=== PATIENT | female | born 1945 | race Caucasian/White ===

== ENCOUNTER 2017-04-22 12:30 | Inpatient (IN) ==
[2017-04-22] MEDS ORDERED: Famotidine 20 MG/2 ML VIAL IVP ONE (12:48)
[2017-04-22] MEDS ORDERED: Gabapentin 300 MG CAPSULE PO ONE (12:48)
[2017-04-22] MEDS ORDERED: CeFAZolin Syr 2,000MG/20 ML 2,000 MG/20 ML SYRINGE IVPB ONE (12:58)
[2017-04-22] MEDS ORDERED: Lidocaine -MPF 1% 2 ML VIAL ID ONE (12:58)
[2017-04-22] MEDS ORDERED: Ringers Solution, Lactated 1,000 ML IVC SCH ×2 (13:00→14:30)
--- NOTE | 2017-04-22 13:02 | Anesthesia Evaluation PreOp ---
Date of Encounter: 04/22/17 Time of Encounter: 13:00 - Past History Planned Operation: Left Total Shoulder Replacement Cardiac History: HTN, Hyperlipidemia Pulmonary History: Denies Any Significant HX ELECTRONIC EQUIPMENT SET UP OPERATOR History: Denies Any Significant HX Other Medical History: Renal (CKD), Diabetes Type II (DM), Thyroid Anesthesia History: No Prior Anesthetic Complications : No Alcohol Use: none Drug use: none Medications and Allergies Allopurinol [Zyloprim 300 MG] 300 mg PO DAILY 04/22/17 [History] Amlodipine Besylate/Benazepril [Lotrel 5-40 mg Capsule] 1 cap PO DAILY 04/22/17 [History] Citalopram Hydrobromide [Citalopram HBr] 20 mg PO DAILY 04/22/17 [History] Fenofibrate Nanocrystallized [Triglide] 160 mg PO DAILY 04/22/17 [History] Fish Oil/Dha/Epa [Fish Oil 1,200 mg Fish Oil] 1 cap PO DAILY 04/22/17 [History] Furosemide [Lasix] 40 mg PO DAILY 04/22/17 [History] Glimepiride [Amaryl] 2 mg PO DAILY 04/22/17 [History] Levothyroxine Sodium 112 mcg PO DAILY 04/22/17 [History] Simvastatin [Zocor] 20 mg PO HS 04/22/17 [History] 3 Allergy/AdvReac Type Severity Reaction Status Date / Time No Known Allergies Allergy Verified 04/22/17 12:53 - Meds/Allergy Pre-op Review Medications Reviewed: Yes Allergies Reviewed: Yes Beta Blockers on Current Med List: No Anesthesia Results - Labs Laboratory Tests 04/20/17 04/20/17 10:50 10:50 Hgb 12.4 Hct 38.6 Plt Count 272 Sodium 142 Potassium 4.4 BUN 34 H Creatinine 1.44 H - Imaging EKG: report reviewed (Supraventricular Bradycardia) Anesthesia Exam O2 Sat Height 1.63 m Weight 87.09 kg Height: 5'4 Weight: 192 lbs NPO (# of Hours): MN Pain Scale: 0 - HEENT Pupil (Motor): Pupils equal, EOMI Mallampati: III Teeth: Normal Oral Opening: Less than or equal to 3 - ELECTRONIC EQUIPMENT SET UP OPERATOR LOC: Oriented ELECTRONIC EQUIPMENT SET UP OPERATOR Motor: Normal RUE, Normal LUE, Normal RLE, Normal LLE, Normal Face ELECTRONIC EQUIPMENT SET UP OPERATOR Sensory: Normal: RUE, LUE, RLE, LLE, Face - Cardiac Rhythm: Regular Murmur: None JVD: No Carotid Bruit: No - Pulmonary Breath Sounds: bilateral Clear Respiratory Effort: Symmetrical Anesthesia Assess/Plan ASA Score: 3 (HTN DM) Modified Mer Scale for Level of Consciousness: Cooperative, oriented, and tranquil Anesthetic Plan: General, Regional Monitoring Plan: Standard Monitors Recovery Plan: PACU (Discussed GA and RA, agrees to proceed)
[2017-04-22] MEDS ORDERED: *HR* Propofol 200 MG/20 ML VIAL IVP ONE (13:16)
[2017-04-22] MEDS ORDERED: *HR* FentaNYL (PF) 100 MCG/2 ML VIAL ONE (13:16)
[2017-04-22] MEDS ORDERED: *HR* Midazolam HCl 2 MG/2 ML VIAL ONE (13:16)
[2017-04-22] MEDS ORDERED: Dexamethasone 4 MG/ML VIAL ONE (13:17)
[2017-04-22] MEDS ORDERED: Lidocaine -MPF 2% 2 ML VIAL ONE (13:17)
[2017-04-22] MEDS ORDERED: Ondansetron 4 MG/2 ML VIAL ONE (13:17)
--- NOTE | 2017-04-22 13:31 | History & Physical Report ---
Date of Encounter: 04/22/17 Time of Encounter: 13:30 24 Hour HP Update - Instructions Instructions: If the History and Physical is less than 30 days old and was completed prior to A.M. admission and or procedure and has NOT been updated on calendar day of procedure please complete this update prior to performing procedure. - Update Patient reports changes in Medical Condition: No Changes in examination, assessment, or condition: No Changes in Medication: No Preop tests/diagnostics Reviewed: Yes Surgery Remains Indicated: Yes Consent for Planned Operative Procedure(s) Verified: Yes - Pre-Operative Checklist Preoperative Checklist Indicated: No Prophylactic Antibiotic Ordered: Yes Is VTE Prophylaxis Indicated?: Yes
--- NOTE | 2017-04-22 13:33 | Discharge Summary ---
Date of Encounter: 04/22/17 - Discharge Diagnosis (1) Chronic kidney disease (CKD) stage G1/A2, glomerular filtration rate (GFR) equal to or greater than 90 mL/min/1.73 square meter and albuminuria creatinine ratio between 30-299 mg/g Priority: Secondary Status: Chronic (2) Hypertension Priority: Secondary Status: Chronic Qualifiers: Hypertension type: unspecified secondary hypertension Qualified Code(s): I15.9 - Secondary hypertension, unspecified; I15 - Secondary hypertension (3) Hyperlipidemia Priority: Secondary Status: Chronic Qualifiers: Hyperlipidemia type: unspecified Qualified Code(s): E78.5 - Hyperlipidemia , unspecified (4) Diabetes type 2, controlled Priority: Secondary Status: Chronic Qualifiers: Diabetes mellitus complication status: with unspecified complications Diabetes mellitus snf insulin use: unspecified intermediate manager insulin use status Qualified Code(s): E11.8 - Type 2 diabetes mellitus with unspecified complications (5) Obesity (BMI 30.0-34.9) Priority: Secondary Status: Chronic (6) Arthritis of left shoulder region Priority: Primary Status: Chronic (7) History of left shoulder replacement Priority: Primary Status: Chronic - Discharge Medications Prescriptions: OxyCODONE Immed Rel [Roxicodone 5 MG] 5 mg PO Q6HR PRN #24 tablet PRN Reason: Pain Home Medications: Allopurinol [Zyloprim 300 MG] 300 mg PO DAILY 04/22/17 [History] Amlodipine Besylate/Benazepril [Lotrel 5-40 mg Capsule] 1 cap PO DAILY 04/22/17 [History] Citalopram Hydrobromide [Citalopram HBr] 20 mg PO DAILY 04/22/17 [History] Fenofibrate Nanocrystallized [Triglide] 160 mg PO DAILY 04/22/17 [History] Fish Oil/Dha/Epa [Fish Oil 1,200 mg Fish Oil] 1 cap PO DAILY 04/22/17 [History] Furosemide [Lasix] 40 mg PO DAILY 04/22/17 [History] Glimepiride [Amaryl] 2 mg PO DAILY 04/22/17 [History] Levothyroxine Sodium 112 mcg PO DAILY 04/22/17 [History] OxyCODONE Immed Rel [Roxicodone 5 MG] 5 mg PO Q6HR PRN #24 tablet 04/22/17 [Rx] Simvastatin [Zocor] 20 mg PO HS 04/22/17 [History] Allergies/Adverse Reactions: 3 Allergy/AdvReac Type Severity Reaction Status Date / Time No Known Allergies Allergy Verified 04/22/17 12:53 Primary care physician: Tammie Alvarado CNP - Discharge Instructions Follow Up With: Tammie Alvarado CNP [Primary Care Provider] - - Hospital Course Hospital course: Ms. Vivas is a 72 year old female - Time Spent with Patient Total time spent providing and/or coordinating discharge services:
[2017-04-22] MEDS ORDERED: Tetracaine/PF 20 MG/2 ML AMPUL ONE (13:38)
[2017-04-22] MEDS ORDERED: ROPIVACAINE HCL/PF 0.5% 30 ML VIAL ONE (13:38)
[2017-04-22] MEDS ORDERED: EPHEDrine 50 MG/ML VIAL ONE (14:13)
--- NOTE | 2017-04-22 14:18 | Anesthesia Procedures ---
Date of Encounter: 04/22/17 Time of Encounter: 14:16 Procedures: Anesthesia - Nerve Block Procedure Date: 04/22/17 Time: 14:16 Surgical Procedure: left tsr Checklist: Correct Patient Identifier, Correct procedure, History checked Correct side: Left Blood Thinner: No Monitor Applied: EKG, BP, Pulse Oximetry Supplemental Oxygen via Nasal Cannula (L/min): 2 Sedation: Versed (mg): 2 Sedation: Fentanyl (mcg): 100 Indication: Post Op Analgesia (request per dr strong for post op pain control) Pre-op Neuro Deficits: No Block Type: Supraclavicular Sterile Technique: Yes Ultrasound used: Yes Anatomy identified: Yes Visual spread of Local: Yes Neuro Stimulation: No Blood on Needle Aspiration: No Smooth Injection of Local: Yes Pain with Injection of Local: No Prep: Chlorhexadine Needle: 22 x 50 mm Stimuplex Local: Tetracaine, Ropivacaine Volume (cc): 30 Number of Attempts: 1 Complications: None/effective block Vitals: Vital Signs/O2 Sat/Glucose, Most Current Temp Pulse Resp BP Pulse Ox 04/22/17 13:38 57 16 151/67 97 04/22/17 13:02 98.2 F 57 18 134/64 94 Comments: pt tolerated procedure well. no complications. vss.
[2017-04-22] MEDS ORDERED: *HR* HYDROmorphone (PF) 1 MG/ML SYRINGE IVP PRN ×2 (14:19→16:20)
[2017-04-22] MEDS ORDERED: Ondansetron 4 MG/2 ML VIAL IVP ONE (14:19)
[2017-04-22] MEDS ORDERED: Albuterol 2.5 MG/3 ML NEBULIZER IH ONE (14:19)
[2017-04-22] MEDS ORDERED: Naloxone 0.4 MG/ML INJ IVP PRN ×2 (14:19→16:20)
--- NOTE | 2017-04-22 15:09 | Orthopedic Operative Note ---
Date of procedure: 04/22/17 Pre-op diagnosis: Left shoulder arthritis Post-op diagnosis: same Procedure: Procedure: Left Total Shoulder Replacement biceps tenodesis Estimated blood loss: 100 cc Hardware:Arthrex glenoid: Small humeral stem: 7 humeral head 44 x 17 Exam Under anesthesia: restricted in all planes Procedural Notes: Grade 4 arthritic changes humeral head glenoid socket. Operative procedure: The patient was brought to the operating room and placed on the operating room table. After general anesthesia was administered the operative shoulder was examined. Findings were noted. The patient was placed in the modified beachchair position. All pressure points were padded appropriately. And the head was stabilized in the neutral position. The operative extremity was prepped and draped in the sterile surgical fashion. The patient received IV antibiotics prior to skin incision. A standard deltopectoral approach was made to the operative shoulder. Incision was made to the skin and subcutaneous tissue,hemo stasis was obtained with Bovie cautery. Using careful blunt dissection the cephalic vein was identified and mobilized medially. The deltopectoral interval was developed and the clavipectoral fascia was incised. The subscap was released off the lesser tuberosity and tagged with #2 FiberWire suture. The humerus was dislocated osteophytes were present were removed and the humeral cut was made along the anatomic neck. Anterior and posterior Bankart retractors were placed to expose the glenoid. The glenoid guide was seated and the centering hole was made. It was reamed with the appropriate small reamer. The finishing guide was seated superior and inferior drill holes were placed. Patient punch was seated trial was seated had good fit and fixation. The small glenoid component was cemented in place held with digital pressure until cemented hardened. A good fit and fixation. The humerus was redislocated and prepared with the diaphyseal reamers, followed by a broaching process up to the appropriate size 7 in the patient's anatomic version. Trial components were removed and drill holes were placed in the bicipital groove x 2. The apex stem was filled with a #5 FiberWire suture through the holes in the stem the 2 lateral fin holes were passed through the drill holes in the lesser tuberosity and passed through the biceps tendon. The component was impacted in place the neck angle and version were locked in place with the inferior and superior screws the trial head was seated and secured in the appropriate position shoulder had good motion and stability. Trial head was removed and the real 44 x 17 humeral head was seated and secured subscap was repaired to the humerus as well as the humeral stem incorporating the biceps tendon for biceps tenodesis and a subscap repair. The deltopectoral interval was closed with a running #1 PDS suture, subcutaneous tissue was irrigated and closed with 0 PDS suture, the skin was closed with zip tie. The patient was placed in a sterile dressing, abduction brace and extubated. The patient was then transferred to the recovery room in stable condition. Anesthesia: GETA Surgeon: Roosevelt Villalpando Condition: stable Disposition: PACU
--- NOTE | 2017-04-22 15:47 | Anesthesia Evaluation Post Op ---
Date of Encounter: 04/22/17 Time of Encounter: 15:45 - Vital Signs Vital Signs: Vital Signs/O2 Sat/Glucose, Most Current Temp Pulse Resp BP Pulse Ox 04/22/17 15:33 73 12 137/66 97 04/22/17 15:23 74 14 131/58 98 04/22/17 15:13 98.5 F 91 16 143/67 93 04/22/17 13:38 57 16 151/67 97 04/22/17 13:02 98.2 F 57 18 134/64 94 - Lungs Lungs: Clear Ascult./Percussion - Airway Airway: Non-obstructed - Cardiovascular Regular Rate - Mental Status Mental Status: Alert & Oriented, Answers Appropriately - Pain Pain Scale: 0 - Nausea Vomiting Nausea Vomiting: Not Present - Hydration Hydration: Ice chips - Discharge PostOp Status: Transfer Patient to floor
[2017-04-22] MEDS ORDERED: Sennosides 8.6 MG TABLET PO PRN (16:20)
[2017-04-22] MEDS ORDERED: D5% in Water 1,000 ML IVC PRN (16:20)
[2017-04-22] MEDS ORDERED: Ondansetron 4 MG/2 ML VIAL IVP PRN (16:20)
[2017-04-22] MEDS ORDERED: *HR* Dextrose 50 % in Water (Syg) 50 ML SYRINGE IVP PRN (16:20)
[2017-04-22] MEDS ORDERED: Temazepam 15 MG CAPSULE PO PRN (16:20)
[2017-04-22] MEDS ORDERED: MOM Conc 10 ML UD.LIQ PO PRN (16:20)
[2017-04-22] MEDS ORDERED: Dextrose Gel 15 GM PO PRN ×2 (16:20)
[2017-04-22] MEDS: *HR* OxyCODONE Immed Rel 5 MG TABLET PO PRN ×2 (16:41→21:05)
[2017-04-22] MEDS: Ringers Solution, Lactated 1,000 ML IVC SCH (16:47)
[2017-04-22] MEDS: Insulin LISPRO 300 UNITS/3 ML VIAL SQ SCH (16:47)
[2017-04-22] MEDS: *HR* Enoxaparin 30 MG/0.3 ML SYRINGE SQ SCH (17:14)
[2017-04-22 17:36] LABS: Hematocrit 40.3 % (35.3-44.9); Hemoglobin 12.9 g/dL (11.5-15.4)
[2017-04-22] MEDS ORDERED: *HR* Enoxaparin 30 MG/0.3 ML SYRINGE SQ SCH (18:00)
[2017-04-22] MEDS ORDERED: Insulin LISPRO 300 UNITS/3 ML VIAL SQ SCH ×2 (18:00→21:00)
[2017-04-22] MEDS: CeFAZolin Premix DUPLEX 2,000 MG/50 ML BAG IVPB SCH (21:05)
[2017-04-23] MEDS: *HR* OxyCODONE Immed Rel 5 MG TABLET PO PRN ×3 (00:47→10:33)
[2017-04-23] MEDS: *HR* Enoxaparin 30 MG/0.3 ML SYRINGE SQ SCH (05:31)
[2017-04-23] MEDS: CeFAZolin Premix DUPLEX 2,000 MG/50 ML BAG IVPB SCH (05:34)
[2017-04-23 06:57] VITALS: BP 99/60
[2017-04-23] MEDS: Insulin LISPRO 300 UNITS/3 ML VIAL SQ SCH (07:06)
[2017-04-23 07:33] LABS: Hematocrit 32.4 % (35.3-44.9)
[2017-04-23 07:40] LABS: Hemoglobin 10.5 g/dL (11.5-15.4)
[2017-04-23] MEDS: Ringers Solution, Lactated 1,000 ML IVC SCH (07:47)
[2017-04-23] MEDS ORDERED: amLODIPine 5 MG TABLET PO SCH (09:00)
[2017-04-23] MEDS ORDERED: *HR* Glimepiride 2 MG TABLET PO SCH (09:00)
[2017-04-23] MEDS ORDERED: Lisinopril 20 MG TABLET PO SCH (09:00)
[2017-04-23] MEDS ORDERED: Fenofibrate 54 MG TABLET PO SCH (09:00)
[2017-04-23] MEDS ORDERED: Furosemide 40 MG TABLET PO SCH (09:00)
[2017-04-23] MEDS ORDERED: FLUARIX QUAD 2017-18 36MOS UP/PF 0.5 ML SYRINGE IM ONE (11:11)
--- NOTE | 2017-04-23 13:28 | Physician Discharge Referral ---
Home Health/Hosp Referral Info Transfer to: Home Health Attending Provider: Dr. Villalpando - Diagnosis (1) Arthritis of left shoulder region Priority: Secondary Status: Chronic (2) Chronic kidney disease (CKD) stage G1/A2, glomerular filtration rate (GFR) equal to or greater than 90 mL/min/1.73 square meter and albuminuria creatinine ratio between 30-299 mg/g Priority: Secondary Status: Chronic (3) Diabetes type 2, controlled Priority: Secondary Status: Chronic (4) History of left shoulder replacement Priority: Primary Status: Acute (5) Hyperlipidemia Priority: Secondary Status: Chronic (6) Hypertension Priority: Secondary Status: Chronic (7) Obesity (BMI 30.0-34.9) Priority: Secondary Status: Chronic - Respiratory Orders Smoking Cessation: Smoking cessation has been advised. For more information, call the [employer] [place] [employer] Quit Line at 8-833-UXYF-NOW. - Dressing/Wound Care Type of Dressing/Treatments w/Frequency: Opsite placed. Keep dressing intact until first follow up appointment. If > 50% saturated, notify office, remove dressing and place appropriate dressing back in place. Dressing is water resistant, not water-proof. OK to shower, but do not get dressing wet. - Diet/Nutrition Diet/Nutrition Orders: Regular - Activity Activity Orders: Ambulate - Services Needed Following services are medically necessary services: Physical Therapy, Occupational Therapy Other Treatments: PT/OT. NWB to affected upper extremity. Follow Shoulder Precautions x 6 weeks. Stay in brace during activity and at night. Remove brace during exercises. ICE and elevate extremity frequently throughout the day. - Transfer Medications Home Medications: Allopurinol [Zyloprim 300 MG] 300 mg PO DAILY 04/22/17 [History] Amlodipine Besylate/Benazepril [Lotrel 5-40 mg Capsule] 1 cap PO DAILY 04/22/17 [History] Citalopram Hydrobromide [Citalopram HBr] 20 mg PO DAILY 04/22/17 [History] Fenofibrate Nanocrystallized [Triglide] 160 mg PO DAILY 04/22/17 [History] Fish Oil/Dha/Epa [Fish Oil 1,200 mg Fish Oil] 1 cap PO DAILY 04/22/17 [History] Furosemide [Lasix] 40 mg PO DAILY 04/22/17 [History] Glimepiride [Amaryl] 2 mg PO DAILY 04/22/17 [History] Levothyroxine Sodium 112 mcg PO DAILY 04/22/17 [History] OxyCODONE Immed Rel [Roxicodone 5 MG] 5 mg PO Q6HR PRN #24 tablet 04/22/17 [Rx] Simvastatin [Zocor] 20 mg PO HS 04/22/17 [History] Allergies/Adverse Reactions: 3 Allergy/AdvReac Type Severity Reaction Status Date / Time No Known Allergies Allergy Verified 04/22/17 12:53 Certification: Further, I certify that my clinical findings support that this patient is homebound (i.e. absences from home require considerable and taxing effort and are for medical reasons or taoism services or infrequently or short duration when for other reasons) because: Homebound Reason: Post-surgery restriction and or conditions limit ability to leave home Attestation: My signature below is to certify that this patient is under my care and that I, or nurse practitioner, or a physician health education assistant working with me, has a face-to- face encounter with this patient.
--- NOTE | 2017-04-23 13:30 | Event Note ---
Date of Encounter: 04/23/17 Time of Encounter: 11:50 Left TSR apex 04/22/17 PCR- POD#1 PCR - Patient seen at bedside. Incision c/d/i, dressing intact. Good motion of hand, some persistent numbness as block still in effect. Pain control: Adequate Participating in PT. All questions and concerns addressed. Educated on use of incentive spirometer, ambulation, and hydration. Patient educated on post-operative restrictions and care. Addressed: see above. D/C plan: DC home today with home therapy.
--- NOTE | 2017-04-23 15:47 | Orthopedics Progress Note ---
Date of Encounter: 04/23/17 Time of Encounter: 08:00 - Assessment and Plan (1) Hypertension Status: Chronic Qualifiers: Hypertension type: unspecified secondary hypertension Qualified Code(s): I15.9 - Secondary hypertension, unspecified; I15 - Secondary hypertension (2) Hyperlipidemia Status: Chronic Qualifiers: Hyperlipidemia type: unspecified Qualified Code(s): E78.5 - Hyperlipidemia , unspecified (3) Chronic kidney disease (CKD) stage G1/A2, glomerular filtration rate (GFR) equal to or greater than 90 mL/min/1.73 square meter and albuminuria creatinine ratio between 30-299 mg/g Status: Chronic (4) Diabetes type 2, controlled Status: Chronic Qualifiers: Diabetes mellitus complication status: with unspecified complications Diabetes mellitus correction insulin use: unspecified correction insulin use status Qualified Code(s): E11.8 - Type 2 diabetes mellitus with unspecified complications (5) Obesity (BMI 30.0-34.9) Status: Chronic (6) Arthritis of left shoulder region Status: Chronic (7) History of left shoulder replacement Status: Acute Subjective Principal diagnosis: s/p left apex TSR Interval history: Patient was seen this morning doing well without complaints. Afebrile vital signs stable. Operative extremity: Neurovascularly intact Dressing clean dry and intact Calves nontender Assessment and plan: Continue with postoperative care Hemoglobin 10.5 discharged today to home Objective Vital signs: Vital Signs Temp Pulse Resp BP Pulse Ox 04/23/17 07:57 93 04/23/17 06:57 97.9 F 54 16 99/60 93 04/23/17 03:39 97.6 F 50 18 105/67 90 04/23/17 00:57 97.5 F L 57 16 110/65 92 04/22/17 22:05 17 92 04/22/17 19:04 97.9 F 62 16 124/63 95 04/22/17 18:29 97.9 F 59 17 137/59 96 04/22/17 18:05 98.0 F 61 18 143/68 95 04/22/17 17:05 97.5 F L 55 16 146/83 95 04/22/17 16:35 97.7 F 58 16 134/58 97 04/22/17 16:05 97.7 F 64 16 139/82 97 Intake and Output 04/22/17 04/23/17 04/23/17 23:59 07:59 15:59 Intake Total 50 / 50 1600 / 1600 50 / 50 Output Total 800 / 800 Balance 50 / 50 800 / 800 50 / 50 Intake: IV Fluids 50 / 50 1000 / 1000 50 / 50 Lactated Ringers 1,000 ML @ 75 1000 / 1000 mls/hr IVC .[id number] MARK Rx#: [id number] Ancef Premix DUPLEX 2,000 mg In 50 / 50 50 / 50 50 ml @ 100 mls/hr IVPB Q8H MARK Rx#:[id number] Oral 600 / 600 Output: Urine 800 / 800 Other: Blood Glucose* 262 129 - Labs CBC & BMP: 04/23/17 07:11 Labs: Abnormal lab results Hgb 10.5 g/dL (11.5-15.4) L D 04/23/17 07:11 Hct 32.4 % (35.3-44.9) L 04/23/17 07:11 POC Glucose 129 (58-89) H 04/23/17 07:02 - VTE Documentation of Mechanical Device: Venous foot pump, device Consult Discharge Plan - Plan Referrals: Ani Norris, PAC [Physician Grain Oilseed Or Pasture Grower] - 04/29/17 3:15 pm (& also, April @ 08:15 AM) Roosevelt Villalpando MD [Partnered Physician] - 05/26/17 5:05 pm Tammie Alvarado CNP [Primary Care Provider] -
== END 2017-04-23 13:02 | disposition home health service (06) | DRG 483 ==
LOC: SAMDAY 12:30 → 3NENU 15:59
PROVIDERS: ADMIT Orthopaedic Surgery; ATTEND Orthopaedic Surgery